=== PATIENT | male | born 1980 ===

== ENCOUNTER 2016-11-25 11:03 | Emergency (ER) | payer BC ==
[2016-11-25 11:10] VITALS: BMI 42.3
--- NOTE | 2016-11-25 11:25 | ED PDOC ---
Arrival/HPI - General Chief Complaint: Dizziness/Lightheaded Time Seen by Provider: 11/25/16 11:10 Historian: Patient - History of Present Illness Narrative History of Present Illness (Text): 11/25/16 11:10 Nazia Salvador is a 35 year old male, whose past medical history includes hypertension and diabetes, presents to the Emergency department complaining of dizziness that began an hour ago prior to arrival. Patient states that he feels the whole room spinning and has been vomiting due to this. He also notes having a headache, mainly on his right side, after his dizziness began. . Patient denies any chest pain, loss of consciousness, shortness of breath, diarrhea, fever, chills, cough, bowel/bladder incontinence, head injury. PMD: Dr. Andrea Michel Time/Duration: 1 hour Symptom Onset: Sudden Symptom Course: Unchanged Modifying Factors (Text): no changes when turning head on either side Associated Symptoms (Text): nausea, vomiting, and headache Past Medical History - Provider Review Nursing Documentation Reviewed: Yes - Cardiac Hx Cardiac Disorders: Yes Hx Hypertension: Yes - Endocrine/Metabolic Hx Endocrine Disorders: Yes Hx Diabetes Mellitus Type 2: Yes - Psychiatric Hx Substance Use: No Family/Social History - Physician Review Nursing Documentation Reviewed: Yes Family/Social History: Unknown Family HX Smoking Status: n Hx Alcohol Use: Yes Frequency of alcohol use: Socially Hx Substance Use: No Allergies/Home Meds Allergies/Adverse Reactions: Allergies No Known Allergies Allergy (Verified 11/25/16 11:10) Home Medications: Home Meds Medication Instructions Recorded Confirmed Insulin Glargine,Hum.rec.anlog 14 unit SQ HS 11/25/16 11/25/16 [Lantus] Losartan/Hydrochlorothiazide 1 tab PO DAILY 11/25/16 11/25/16 [Losartan Potassium-Hydrochlorothiazide 12.5 M] Sitagliptin Phos/Metformin HCl 1 each PO BID 11/25/16 11/25/16 [Janumet 50-1,000 mg Tablet] Review of Systems - Physician Review All systems were reviewed & negative as marked: Yes - Review of Systems Respiratory: absent: SOB Cardiovascular: absent: Chest Pain Gastrointestinal: Nausea, Vomiting Musculoskeletal: absent: Neck Pain Neurological: Headache, Dizziness Physical Exam Vital Signs Temp Pulse Resp BP Pulse Ox 11/25/16 13:03 91 H 15 141/73 98 11/25/16 11:03 97.7 F 78 18 142/77 98 Appearance: Positive for: Well-Appearing, Non-Toxic, Comfortable Pain Distress: None Mental Status: Positive for: Alert and Oriented X 3, Lethargic, other - Systems Exam Head: Present: Atraumatic, Normocephalic Pupils: Present: PERRL Extroacular Muscles: Present: EOMI, Other (no nystagmus) Conjunctiva: Present: Normal Mouth: Present: Moist Mucous Membranes Neck: Present: Normal Range of Motion Respiratory/Chest: Present: Clear to Auscultation, Good Air Exchange. No: Respiratory Distress, Accessory Muscle Use Cardiovascular: Present: Regular Rate and Rhythm, Normal S1, S2. No: Murmurs Abdomen: Present: Normal Bowel Sounds. No: Tenderness, Distention, Peritoneal Signs Back: Present: Normal Inspection Upper Extremity: Present: Normal Inspection. No: Cyanosis, Edema Lower Extremity: Present: Normal Inspection. No: Edema Neurological: Present: GCS=15, CN II-XII Intact, Speech Normal Skin: Present: Warm, Dry, Normal Color. No: Rashes Psychiatric: Present: Alert, Oriented x 3, Normal Insight, Normal Concentration , Lethargic Medical Decision Making ED Course and Treatment: 11/25/16 11:10 Impression: 35 year old male with dizziness and vomiting. Differential Diagnosis included but are not limited to: benign positional vertigo vs. arrhythmia vs. electrolyte abnormality Plan: -- EKG -- Labs -- Antivert, Reglan, and Tylenol -- Reassess and disposition Progress Notes: EKG: Ordered, reviewed, and independently interpreted the EKG. Rate : 84 BPM Rhythm : NSR Interpretation : No ST-segment elevations or depressions, no T-wave inversions, normal intervals. Comparison : No previous EKG for comparison. 11/25/16 12:22 Reevaluation: On reevaluation the patient feels better, no longer has dizziness, and is in no acute distress. I have discussed the results and plan with the patient, who expresses understanding. Patient was given the opportunity to ask questions, all questions were answered and there is agreement with the plan to discharge the patient. Patient is stable for discharge. Patient was instructed to follow up with physician/clinic in 1-2 days or return if symptoms persist/worsen or new concerning symptoms arise. - Lab Interpretations Lab Results: 11/25/16 12:15 11/25/16 11:17 Lab Results 11/25/16 12:15: WBC 9.5, RBC 5.37, Hgb 16.6, Hct 46.1, MCV 85.8, MCH 30.9, MCHC 36.0, RDW 12.0, Plt Count 263, MPV 9.7, Gran % 48.0 L, Lymph % (Auto) 43.2 H, Burnet % (Auto) 6.0, Eos % (Auto) 2.6, Baso % (Auto) 0.2, Gran # 4.54, Lymph # 4.1 H, Burnet # 0.6, Eos # 0.3, Baso # 0.02 11/25/16 11:17: Sodium 137, Potassium 3.9, Chloride 97 L, Carbon Dioxide 25, Anion Gap 19, BUN 13, Creatinine 0.5, Est GFR ( Amer) > 60, Est GFR (Non- Af Amer) > 60, Random Glucose 298 H, Calcium 9.6, Magnesium 1.8 I have reviewed the lab results: Yes - EKG Interpretation Interpreted by ED Physician: Yes Type: 12 lead EKG - Medication Orders Current Medication Orders: Discontinued Medications Acetaminophen (Tylenol 325mg Tab) 975 mg PO STAT STA Stop: 11/25/16 11:17 Last Admin: 11/25/16 11:30 Dose: 975 mg Meclizine HCl (Antivert) 25 mg PO STAT STA Stop: 11/25/16 11:17 Last Admin: 11/25/16 11:31 Dose: 25 mg Metoclopramide HCl (Reglan) 10 mg IVP STAT STA Stop: 11/25/16 11:17 Last Admin: 11/25/16 11:30 Dose: 10 mg - Scribe Statement The provider has reviewed the documentation as recorded by the Scribe 11/25/2016 Arianna Ledesma Attestation: All medical record entries made by the Scribe were at my direction and personally dictated by me. I have reviewed the chart and agree that the record accurately reflects my personal performance of the history, physical exam, medical decision making, and the department course for this patient. I have also personally directed, reviewed, and agree with the discharge instructions and disposition. Disposition/Present on Arrival - Present on Arrival Any Indicators Present on Arrival: No History of DVT/PE: No History of Uncontrolled Diabetes: No Urinary Catheter: No History of Decub. Ulcer: No History Surgical Site Infection Following: None - Disposition Have Diagnosis and Disposition been Completed?: Yes Diagnosis: Vertigo, Hyperglycemia Disposition: HOME/ ROUTINE Disposition Time: 12:48 Patient Plan: Discharge Condition: IMPROVED Discharge Instructions (ExitCare): Vertigo (ED) Additional Instructions: Mr Salvador, thank you for letting us take care of you today. Your provider was Dr. Marsh. You were treated for Vertigo. The emergency medical care you received today was directed at your acute symptoms. If you were prescribed any medication, please fill it and take as directed. It may take several days for your symptoms to resolve. Return to the Emergency Department if your symptoms worsen, do not improve, or if you have any other problems. Please contact your doctor or call one of the physicians/clinics you have been referred to that are listed on the Patient Visit Information form that is included in your discharge packet. Bring any paperwork you were given at discharge with you along with any medications you are taking to your follow up visit. Our treatment cannot replace ongoing medical care by a primary care provider (PCP) outside of the emergency department. Thank you for allowing the [facility] team to be part of your care today. If you had an X-Ray or CT scan: A Radiologist will review the ED reading if any change in treatment is needed we will contact you. If you had a blood, urine, or wound culture: It will take several days for the results, if any change in treatment is needed we will contact you. If you had an STI test: It will take 48 hours for the results. Please call after 1 week if you have not heard back. Prescriptions: Meclizine [Meclizine*] 25 mg PO Q8 PRN #30 tab PRN Reason: Dizziness Referrals: Keo Valdez [Primary Care Provider] - Follow up with primary Rocky Haddad DO [Staff Provider] - Follow up with primary Forms: [employer] (Arabic)
[2016-11-25 12:19] LABS: ADD MANUAL DIFF? NO; BASO # 0.02 K/mm3 (0.0-2.0); BASO % 0.2 % (0.0-3.0); EOS # 0.3 (0.0-0.7); EOS % 2.6 % (1.5-5.0); GRAN # 4.54 (1.4-6.5); HEMATOCRIT 46.1 % (42.0-52.0); LYMPH # 4.1 (1.2-3.4); LYMPH % 43.2 % (22.0-35.0); MEAN CELL VOLUME 85.8 fL (80.0-105.0); MEAN CORPUSCULAR HEMOGLOBIN 30.9 pg (25.0-35.0); MEAN PLATELET VOLUME 9.7 fl (7.0-11.0); MONO # 0.6 (0.1-0.6); PLATELET COUNT 263 10^3/uL (120.0-450.0); WHITE BLOOD COUNT 9.5 10^3/ul (4.5-11.0)
[2016-11-25 12:26] LABS: BLOOD UREA NITROGEN 13 mg/dL (7-21); CALCIUM 9.6 mg/dL (8.4-10.5); CARBON DIOXIDE 25 mmol/L (21-33); CHLORIDE 97 mmol/L (98-107); GFR AFRICAN-AMERICAN > 60; MAGNESIUM 1.8 mg/dL (1.7-2.2); POTASSIUM 3.9 mmol/L (3.6-5.0); SODIUM 137 mmol/L (132-148)
[2016-11-25 12:32] LABS: GLUCOSE,RANDOM 298 mg/dL (70-110)
[2016-11-25 12:51] VITALS: TEMP 97.7; O2SAT 98
[2016-11-25 13:10] VITALS: BP 141/73; PULSE 91; RESP 15
--- NOTE | 2016-11-25 15:12 | CARD ---
APPROVED REPORT EKG Measurement Heart [id number] <Conclusion> Normal sinus rhythm Normal ECG
== END 2016-11-25 13:18 | disposition home or self-care (01) ==
LOC: ED 11:03
DX: E11.65 Type 2 diabetes mellitus with hyperglycemia (principal); R42 Dizziness and giddiness; I10 Essential (primary) hypertension
CPT/HCPCS: 80048; 83735; 85025; 93005; 96374; 99285; J2765